=== PATIENT | male | born 1970 | race Caucasian/White ===

== ENCOUNTER 2016-09-14 17:51 | Emergency (ER) | payer SELFPAY ==
[~2016-09-14] VITALS: Ht 172.7 cm; Wt 76.0 kg
[~2016-09-14 17:51] MED LIST: FAMO20TA7 PO; FOLI-17 PO; NYST1000 PO; THIA100T6 PO
[2016-09-14 19:30] VITALS: BP 104/64
[2016-09-14 20:47] LABS: HEMOGLOBIN 11.9 g/dL (13.7-18.0)
[2016-09-14 20:49] LABS: ASPARTATE AMINO TRANSFERASE 26 U/L (15-37); BLOOD UREA NITROGEN 13 mg/dL (7-18)
[2016-09-14 20:50] LABS: DAU SCREEN DISCLAIMER
[2016-09-14 20:53] LABS: ACETAMINOPHEN < 2 mcg/mL (10-30)
[2016-09-14 21:48] LABS: DIFF TOTAL CELLS COUNTED 100 CELL DIFF
[2016-09-14 21:55] LABS: ANISOCYTOSIS 1+
[2016-09-14 21:58] LABS: POLYCHROMASIA 1+
[2016-09-14 21:59] LABS: LARGE PLATELETS 1+
[2016-09-14 22:06] LABS: VERIFY COUNTS? YES
== END 2016-09-14 19:33 | disposition home or self-care (01) ==
LOC: ED 18:06
DX: F10.239 Alcohol dependence with withdrawal, unspecified (principal); Y90.9 Presence of alcohol in blood, level not specified; F10.20 Alcohol dependence, uncomplicated
CPT/HCPCS: 36415; 80053; 80307; 80329; 81001; 82140; 85025; 93005; G0480